=== PATIENT | female | born 1990 | race Two or more races ===

== ENCOUNTER 2022-01-01 19:33 | Emergency (ER) | payer MEDICAID, OTHER ==
[~2022-01-01] VITALS: Ht 170.2 cm; Wt 45.5 kg
[2022-01-01 19:40] VITALS: BP 116/86
[2022-01-01 21:55] LABS: Urine Bacteria FEW /hpf (None Seen); Urine Blood Negative /uL (Negative); Urine Specific Gravity 1.011 (1.001-1.035); Urine WBC <1 /hpf (0 - 5)
== END 2022-01-01 22:27 | disposition left against medical advice (07) ==
LOC: EDBD 19:33 → ER 19:37
DX: R33.9 Retention of urine, unspecified (principal); F17.210 Nicotine dependence, cigarettes, uncomplicated
CPT/HCPCS: 51702; 81001